=== PATIENT | male | born 1945 | race Caucasian/White ===

== ENCOUNTER → 2021-06-14 | Outpatient (CLI) | payer MEDICARE, OTHER | LOC: MC.RAD 09:40 | DX: N62 Hypertrophy of breast (principal); N63.20 Unspecified lump in the left breast, unspecified quadrant ==

== ENCOUNTER 2022-02-21 12:45 | Outpatient (RCR) | payer MEDICARE, OTHER | END 2022-03-01 | disposition still patient (30) | LOC: WSOT | DX: S52.571D Other intraarticular fracture of lower end of right radius, subsequent encounter for closed fracture with routine healing (principal); X58.XXXD Exposure to other specified factors, subsequent encounter ==

== ENCOUNTER 2022-03-10 11:15 | Outpatient (RCR) | payer MEDICARE, OTHER | END 2022-03-31 | disposition still patient (30) | LOC: WSOT | DX: S52.571A Other intraarticular fracture of lower end of right radius, initial encounter for closed fracture (principal) ==

== ENCOUNTER 2022-04-13 10:05 | Emergency (ER) | payer MEDICARE ==
[~2022-04-13] VITALS: Ht 180.3 cm; Wt 98.6 kg
[2022-04-13 10:21] VITALS: TEMP 99.8
[2022-04-13 11:33] LABS: BASO % 0.7 % (0.0-2.0); GRAN # 4.1 K/mm3 (1.4-6.5); GRAN % 70.3 % (42.2-75.2); HEMATOCRIT 47.6 % (42.0-52.0); HEMOGLOBIN 15.9 g/dl (13.5-18.0); LYMPH # 0.9 K/mm3 (1.2-3.4); LYMPH % 15.6 % (20.0-51.0); MEAN CELL VOLUME 94 fl (80.0-100.0); MEAN CORPUSCULAR HEMOGLOBIN 31 pg (27-31); MEAN CORPUSCULAR HGB CONC 33 g/dl (33.0-37.0); MEAN PLATELET VOLUME 10.7 fl (7.4-10.4); MONO # 0.8 K/mm3 (0.1-0.6); MONO % 13.1 % (1.7-9.3); PLATELET COUNT 154 K/mm3 (130-400); RED BLOOD COUNT 5.08 M/mm3 (4.20-5.60); REDCELL DISTRIBUTION WIDTH-CV 13.1 % (11.5-14.5)
[2022-04-13 11:40] LABS: ALANINE AMINOTRANSFERASE 17 U/L (0-55); ALBUMIN 3.9 gm/dL (3.4-4.8); ALKALINE PHOSPHATASE 97 U/L (40-150); ANION GAP 12 mmol/L (7-16); AST,SGOT 17 U/L (5-34); BILIRUBIN,TOTAL 0.4 mg/dL (0.2-1.2); BLOOD UREA NITROGEN 14 mg/dL (8-26); CARBON DIOXIDE 23 mmol/L (23-31); CHLORIDE 102 mmol/L (98-107); CREATININE, serum 1.28 mg/dL (0.72-1.25); GLUCOSE 104 mg/dL (70-99); POTASSIUM 4.5 mmol/L (3.5-4.5); SODIUM 137 mmol/L (136-145)
[2022-04-13 11:59] LABS: TROPONIN-I < 0.010 ng/mL (0.00-0.033)
[2022-04-13] MEDS ORDERED: PROMETHAZINE D473 ML PO (12:09)
[2022-04-13 12:55] VITALS: BP 130/61; PULSE 71
== END 2022-04-13 13:00 | disposition home or self-care (01) ==
LOC: COL.ER 10:05
PROVIDERS: Physician Assistant
DX: U07.1 COVID-19 (principal); Z73.0 Burn-out
CPT/HCPCS: J1100; J1885; J7030; Q0222